=== PATIENT | male | born 1975 | race Caucasian/White ===

== ENCOUNTER 2019-11-15 21:00 | Emergency (ER) | payer BC ==
[~2019-11-15] VITALS: Ht 177.8 cm; Wt 109.1 kg
[2019-11-15 21:08] VITALS: TEMP 98.9
[2019-11-15 22:26] LABS: ALBUMIN 4.5 gm/dL (3.5-5.0); BILIRUBIN,TOTAL 0.4 mg/dL (0.0-1.0); CALCIUM 10.1 mg/dL (8.4-10.2); CREATININE, serum 0.79 (0.66-1.25); MAGNESIUM 2.4 mg/dL (1.6-2.3); POTASSIUM 4.5 mmol/L (3.4-5.0); TOTAL PROTEIN 8.1 gm/dL (6.4-8.2)
[2019-11-15 22:38] LABS: BASO # 0.1 (0.0-0.2); BASO % 0.5 % (0.0-2.0); EOS # 0.1 (0.0-0.7); EOS % 1.1 % (0-4.0); GRAN # 5.5 (1.4-6.5); GRAN % 51.6 % (42.2-75.2); HEMATOCRIT 46.8 % (42.0-52.0); HEMOGLOBIN 16.1 g/dl (13.5-18.0); LYMPH # 4.2 (1.2-3.4); LYMPH % 39.9 % (20.0-51.0); MEAN CELL VOLUME 92 fl (80.0-100.0); MEAN CORPUSCULAR HEMOGLOBIN 32 pg (27.0-31.0); MEAN CORPUSCULAR HGB CONC 34 g/dl (33.0-37.0); MEAN PLATELET VOLUME 9.9 fl (7.4-10.4); MONO # 0.7 (0.1-0.6); MONO % 6.2 % (1.7-9.3); PLATELET COUNT 272 K/mm3 (130-400); RED BLOOD COUNT 5.07 M/mm3 (4.20-5.60); REDCELL DISTRIBUTION WIDTH-CV 12.4 % (11.5-14.5)
[2019-11-15 23:19] LABS: TRICYCLIC ANTIDEPRESS URINE NEGATIVE
[2019-11-16] MEDS ORDERED: DOXYCYCLINE 10100 MG PO (00:48)
[2019-11-16 01:19] VITALS: BP 134/94; PULSE 66
== END 2019-11-16 01:16 | disposition home or self-care (01) ==
LOC: COL.ER 21:00
PROVIDERS: Emergency Medicine; Nurse Practitioner
DX: S82.832A Other fracture of upper and lower end of left fibula, initial encounter for closed fracture (principal); S80.862A Insect bite (nonvenomous), left lower leg, initial encounter; F32.9 Major depressive disorder, single episode, unspecified; F10.129 Alcohol abuse with intoxication, unspecified; W57.XXXA Bitten or stung by nonvenomous insect and other nonvenomous arthropods, initial encounter; X50.1XXA Overexertion from prolonged static or awkward postures, initial encounter; Y93.01 Activity, walking, marching and hiking; F17.220 Nicotine dependence, chewing tobacco, uncomplicated
CPT/HCPCS: J2405; J7030

== ENCOUNTER 2022-01-15 05:54 | Day surgery (SDC) | payer BC ==
[~2022-01-15] VITALS: Ht 177.8 cm; Wt 114.1 kg
[~2022-01-15 05:54] MED LIST: DOXYCYCLINE 10100 MG PO
[2022-01-15 08:28] VITALS: BP 135/89; PULSE 81; TEMP 98.4
[2022-01-15] MEDS ORDERED: NEXIUM 40MG40 MG PO (08:36)
[2022-01-15 10:15] VITALS: BP 129/79; PULSE 84; TEMP 97.9
--- NOTE | 2022-01-15 10:15 | NUR ---
PT TO BAY 7 PER CART FROM PACU. REPORT RECEIVED. VS OBTAINED. PT TOLERATING ICE CHIPS AND SALTINES. CALL LIGHT WITHIN REACH. DENIES ANY OTHER NEEDS AT THIS TIME.
[2022-01-15 10:30] VITALS: BP 122/80; PULSE 83
[2022-01-15 10:45] VITALS: BP 130/78; PULSE 84
--- NOTE | 2022-01-15 10:45 | NUR ---
PT TOLERATING MUFFIN AND SPRITE. DENIES ANY OTHER NEEDS AT THIS TIME.
[2022-01-15 11:00] VITALS: BP 120/68; PULSE 79
--- NOTE | 2022-01-15 11:10 | NUR ---
IV DC'D. PT TOLERATED WELL.
--- NOTE | 2022-01-15 11:15 | NUR ---
DISCHARGE EDUCATION COMPLETED WITH PT AND HIS . THEY VERBALIZED UNDERSTANDING OF HOME AND FOLLOW UP CARE. ALL QUESTIONS ANSWERED. DISCHARGE PAPERWORK GIVEN TO PT.
--- NOTE | 2022-01-15 11:25 | NUR ---
PT OFF UNIT PER WHEELCHAIR. PT DISCHARGED TO HOME WITH PER PERSONAL VEHICLE.
== END 2022-01-15 11:25 | disposition home or self-care (01) ==
LOC: SDCO 05:54
DX: S83.241A Other tear of medial meniscus, current injury, right knee, initial encounter (principal); Z87.891 Personal history of nicotine dependence
CPT/HCPCS: J0171; J0690; J1100; J1170; J1885; J2405; J2704; J3010